=== PATIENT | male | born 1990 | race Caucasian/White ===

== ENCOUNTER 2017-03-29 12:13 | Emergency (ER) | payer OTHER ==
[~2017-03-29] VITALS: Ht 172.7 cm; Wt 85.0 kg
[2017-03-29 12:21] VITALS: TEMP 36.8; Ht 172.7 cm; Wt 85.0 kg
[2017-03-29] MEDS ORDERED: ACETAMINOPHEN 500 MG TAB PO STA (12:45)
[2017-03-29] MEDS ORDERED: CRBSR/200 PO (13:09)
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
[2017-03-29 13:50] VITALS: BP 143/93; PULSE 71; O2SAT 96
== END 2017-03-29 13:50 | disposition home or self-care (01) ==
LOC: C.EDB 12:15 → C.EDD 13:50
DX: G44.319 Acute post-traumatic headache, not intractable (principal); S09.90XA Unspecified injury of head, initial encounter; G40.909 Epilepsy, unspecified, not intractable, without status epilepticus; Z79.899 Other long term (current) drug therapy; V48.5XXA Car driver injured in noncollision transport accident in traffic accident, initial encounter